=== PATIENT | female | born 1985 | race Caucasian/White ===

== ENCOUNTER 2023-12-28 13:39 | Emergency (ER) | payer BC ==
[~2023-12-28] VITALS: Ht 167.6 cm; Wt 91.0 kg
[2023-12-28 13:40] VITALS: BP 145/80; PULSE 103; RESP 16; TEMP 98.7; O2SAT 98
[2023-12-28] MEDS: ONDANSETRON 4MG ODT PO STA (13:54)
[2023-12-28 14:25] LABS: CLARITY URINE CLEAR (CLEAR); COLOR URINE DARK YELLOW (YELLOW); GLUCOSE URINE NEGATIVE (NEGATIVE); KETONES URINE TRACE (NEGATIVE); LEUKOCYTE ESTERASE URINE TRACE (NEGATIVE); NITRITE URINE NEGATIVE (NEGATIVE); OCCULT BLOOD URINE 3+ (NEGATIVE); PH URINE 5.5 (4.5-8.0); PROTEIN URINE 2+ (NEGATIVE); SPECIFIC GRAVITY URINE 1.036 (1.005-1.030)
[2023-12-28 14:37] LABS: HEMATOCRIT. 40.5 % (36.0-48.0); HEMOGLOBIN. 13.4 g/dL (12.0-16.0); MEAN CORPUSCULAR HEMOGLOBIN 28.2 pg (28.0-32.0); MEAN CORPUSCULAR HGB CONC 33.1 g/dL (31.0-37.0); MEAN CORPUSCULAR VOLUME 85.2 fL (81.0-99.0); MEAN PLATELET VOLUME 8.2 fl (7.4-10.4); PLATELET 218 x1000/uL (130-400); RED BLOOD CELL COUNT 4.75 mill/uL (4.2-5.4); RED CELL DISTRIBUTION WIDTH 13.5 % (11.6-14.6); WHITE BLOOD COUNT 4.1 x1000/uL (4.5-11.0)
[2023-12-28 14:42] LABS: CHLORIDE 105 mEq/L (98-107); POTASSIUM 4.1 mEq/L (3.5-5.1); SODIUM 136 mEq/L (136-145)
[2023-12-28 14:43] LABS: CALCIUM 8.9 mg/dL (8.7-10.4); CARBON DIOXIDE 24 mEq/L (21-32)
[2023-12-28 14:45] LABS: SQUAMOUS EPITHELIAL CELL URINE 1+ /lpf (RARE/1+)
[2023-12-28 14:48] LABS: CREATININE 0.9 mg/dL (0.6-1.0); GLUCOSE 196 mg/dL (70-105); UREA NITROGEN BLOOD 13 mg/dL (9-23)
[2023-12-28 14:49] LABS: HCG SCREEN NEGATIVE
[2023-12-28 14:53] LABS: BACTERIA URINE 2+; MUCUS URINE TRACE /lpf (< = 2+); RBC URINE 15-25 /hpf (0-2); YEAST URINE NONE SEEN
[2023-12-28 14:55] LABS: DIFFERENTIAL COMMENT 1
[2023-12-28] MEDS ORDERED: NITR-87 MT (15:31)
[2023-12-28 15:48] LABS: PLATELET ESTIMATE NORMAL
== END 2023-12-28 16:10 | disposition home or self-care (01) ==
LOC: EDBD 13:39 → ER 14:01
DX: N39.0 Urinary tract infection, site not specified (principal); E11.9 Type 2 diabetes mellitus without complications; I10 Essential (primary) hypertension; Z20.822 Contact with and (suspected) exposure to COVID-19
CPT/HCPCS: 99283; 87426; 80048; 81003; 81025; 84703; 85025; 87804 ×2; 36415; Q0162